=== PATIENT | male | born 1975 | race Caucasian/White ===

== ENCOUNTER 2021-05-30 09:08 | Day surgery (SDC) | payer BC ==
[~2021-05-30 09:08] MED LIST: Lactated Ringers 1,000 ML IV SCH; Lidocaine 1%/Sod Bicarbonate in NS 8.4% 1 ML Syringe IDERM PRN; Sodium Chloride 0.9% 10 ML Syringe FLUSH SCH
[2021-05-30] MEDS ORDERED: fentaNYL 100 MCG/2 ML SDV ONE (10:35)
[2021-05-30] MEDS ORDERED: Propofol 200 MG/20 ML SDV ONE (10:35)
[2021-05-30] MEDS ORDERED: Lidocaine 1% 4 ML ONE (10:36)
[2021-05-30] MEDS ORDERED: Lidocaine 1% 2 ML ONE (10:38)
[2021-05-30] MEDS ORDERED: Lactated Ringers 1,000 ML ONE (12:13)
[2021-05-30 13:16] VITALS: BP 117/72; PULSE 60
== END 2021-05-30 13:15 | disposition home or self-care (01) ==
LOC: JD.SDS 09:08
PROVIDERS: ATTEND Surgery
DX: Z12.11 Encounter for screening for malignant neoplasm of colon (principal); I10 Essential (primary) hypertension; G43.909 Migraine, unspecified, not intractable, without status migrainosus; F17.200 Nicotine dependence, unspecified, uncomplicated; Z01.812 Encounter for preprocedural laboratory examination; Z20.822 Contact with and (suspected) exposure to COVID-19; Z85.048 Personal history of other malignant neoplasm of rectum, rectosigmoid junction, and anus; Z98.890 Other specified postprocedural states
CPT/HCPCS: 45378; 87635; J2704; J3010; J7120; 00812; U0002

== ENCOUNTER 2024-10-11 07:30 | Day surgery (SDC) | payer BC ==
[~2024-10-11 07:30] MED LIST changes: -Lactated Ringers 1,000 ML IV SCH; -Lidocaine 1%/Sod Bicarbonate in NS 8.4% 1 ML Syringe IDERM PRN; +Sodium Chloride 0.9% 10 ML Syringe FLUSH PRN
[2024-10-11] MEDS: Lactated Ringers 1,000 ML IV SCH (07:58)
[2024-10-11] MEDS ORDERED: propofoL 500 MG/50 ML 50 ML ONE (09:13)
[2024-10-11 12:39] VITALS: BP 117/70; PULSE 62
[2024-10-11] MEDS ORDERED: Lactated Ringers 1,000 ML IV SCH (14:15)
== END 2024-10-11 10:29 | disposition home or self-care (01) ==
LOC: JD.SDS 07:30
PROVIDERS: ATTEND Surgery
DX: Z12.11 Encounter for screening for malignant neoplasm of colon (principal); K21.00 Gastro-esophageal reflux disease with esophagitis, without bleeding; I10 Essential (primary) hypertension; F17.200 Nicotine dependence, unspecified, uncomplicated; Z85.038 Personal history of other malignant neoplasm of large intestine
CPT/HCPCS: 43239; 45378; C9777; J2704; J7120